=== PATIENT | male | born 1935 | race Caucasian/White ===

== ENCOUNTER → 2017-10-11 | Outpatient (CLI) | payer MEDICARE, OTHER ==
[~2017-10-11] MED LIST: BACTRIM DS TAB1 EACH PO; CEFTIN250 MG PO; ISOSORBIDE MONO30 M1 PO; LEVOFLOXACIN500 MG PO; METOPROLOL TART25 MG PO; OMEPRAZOLE40 MG PO; PLAVIX75 MG PO; PREDNISONE10 MG PO; SIMVASTATIN40 MG PO; TAMSULOSIN HCL0.4 MG PO; XOPENEX0.63 MG/3 IH; ZPACK
--- NOTE | 2017-10-11 15:44 | Diagnostic Imaging Report ---
PROCEDURE:CT CHEST WITHOUT CONTRAST COMPARISON:CT chest 03/20/16 INDICATIONS:ASBESTOSIS, SHORTNESS OF BREATH TECHNIQUE: Axial CT images of the chest were obtained without intravenous contrast. Coronal and sagittal reformations were made available for review. RADIATION DOSE: Total DLP: 482.6 mGy*cm Estimated effective dose: (DLP x 0.014 x size factor) mSv FINDINGS: Lungs: Diffusely hyperinflated. The pattern and severity of interstitial thickening and honeycombing is unchanged. Airways: Varicose bronchiectasis in the affected areas is stable. Masses/nodules: A 3 mm calcified granuloma in the right lower lobe is stable. No soft tissue mass or infiltrate. Pleura: Bilateral apical pleural-parenchymal thickening is stable. No pleural effusions or pleural-based mass. Heart \T\ Mediastinum:The heart is enlarged. There is a stent in the LAD coronary artery. There calcifications of the mitral and aortic valves. The main pulmonary artery measures 3 cm in diameter and is stable. Ascending aorta measures 3.5 cm in diameter and is stable. There is a trace pericardial effusion. The esophagus is normal. Thyroid/base of neck: Visualized portions are normal. Lymph nodes: No enlarged axillary, clavicular, or mediastinal lymph nodes. Tiny calcified right hilar lymph nodes are stable. No enlarged subcarinal lymph nodes. Upper abdomen:There is fatty atrophy of the pancreas. Visualized portions of the liver and spleen containing punctate calcified granulomata. No soft tissue mass in the visualized portions of the upper abdomen. Musculoskeletal:There are no focal osseous lesions. CONCLUSION: 1. No progression of pulmonary fibrosis. No pulmonary mass or infiltrate has developed. 2. No evidence of pleural calcification or pleural mass. 3. Healed granulomatous inflammation. 4. Enlarged main pulmonary artery is suggestive of pulmonary artery hypertension. Stable ascending aortic ectasia. Dictated by: Nasir Loyd M.D. on 10/11/2017 at 15:51 Electronically approved by: Nasir Loyd M.D. on 10/11/2017 at 15:51
== END ==
LOC: CT 14:42
PROVIDERS: ATTEND Internal Medicine Critical Care Medicine
DX: R06.02 Shortness of breath (principal); J61 Pneumoconiosis due to asbestos and other mineral fibers; J44.9 Chronic obstructive pulmonary disease, unspecified; J84.9 Interstitial pulmonary disease, unspecified; Z87.891 Personal history of nicotine dependence
CPT/HCPCS: 71250

== ENCOUNTER → 2018-01-13 | Outpatient (CLI) | payer MEDICARE, OTHER ==
--- NOTE | 2018-01-13 12:26 | Diagnostic Imaging Report ---
PROCEDURE:X-RAY MODIFIED BARIUM SWALLOW COMPARISON:None. INDICATIONS:Dysphagia. DISCUSSION:Fluoroscopic examination was performed in conjunction with speech pathology, during swallowing of a variety of thin and thick liquid consistencies. CONCLUSION: Flash penetration with thin liquids. No aspiration. Please see the report from speech pathology for complete details. Dictated by: Daniel Mccabe M.D. on 01/13/2018 at 12:27 Electronically approved by: Daniel Mccabe M.D. on 01/13/2018 at 12:27
--- NOTE | 2018-01-13 19:52 | Diagnostic Imaging Report ---
Exam: Lumbar spine MRI without IV contrast History: Weakness in legs lumbar discitis. Comparison studies: None Technique: Sagittal and axial T2 , sagittal T1 and IR, axial spin density oblique. Intravenous contrast: None Findings: Number of lumbar vertebral bodies: 5. Alignment: Normal lumbar lordosis. No significant scoliosis. Soft tissues: No T2 hyperintense inflammatory changes. Paraspinal muscles: No T2 hyperintense inflammatory changes. Mild to moderate symmetric bilateral atrophy. Lower thoracic cord: Normal in signal and morphology. The tip of the conus at the inferior L1 level. Cauda equina: No masses. No arachnoiditis. Vertebrae: No compression fractures, infection or neoplasm. Degenerative changes: There is loss of T2/STIR disc signal from T12 through S1. L1-L2: Asymmetric right disc bulge with small extraforaminal annular fissure with minimal right foraminal stenosis. No canal or left frontal stenosis. L2-L3: Disc bulge results in minimal bilateral foraminal stenosis. No canal stenosis. L3-L4: Moderately degenerated disc. Asymmetric asymmetric left disc bulge with small left subarticular disc extrusion, left foraminal disc osteophyte complex, thickened ligamentum flavum and bilateral facet arthrosis with mild canal stenosis, moderate left and mild right foraminal stenosis. Disc extrusion may compress the left L5 nerve root. L4-L5: Moderately degenerated disc. Disc bulge with small central disc protrusion, bilateral foraminal disc osteophyte complexes, thickened ligamentum flavum and bilateral facet arthrosis with mild canal stenosis, moderate bilateral foraminal stenosis and narrowing of the subarticular recesses with disc which abuts the bilateral L5 nerve root and may potentially compress the left L5 nerve root. L5-S1: Symmetric disc bulge and bilateral facet arthrosis without significant canal or foraminal stenosis. IMPRESSION: 1. At L3-L4 there is moderate disc degeneration, mild canal stenosis, moderate left and mild right foraminal stenosis and small left subarticular disc extrusion which may compress the left L4 nerve root. 2. At L4-L5 there is moderate disc degeneration, mild canal stenosis, moderate bilateral foraminal stenosis and small central disc extrusion which abuts the L5 nerve root and may compress the left L5 nerve root. 3. Additional mild degenerative changes as described. Signed by: Dr. Juan Ramon Gamez M.D. on 01/13/2018 7:48 PM
== END | disposition home or self-care (01) ==
LOC: MRI 10:00
PROVIDERS: ATTEND Internal Medicine Critical Care Medicine
DX: J61 Pneumoconiosis due to asbestos and other mineral fibers (principal); J44.9 Chronic obstructive pulmonary disease, unspecified; J84.9 Interstitial pulmonary disease, unspecified; M46.46 Discitis, unspecified, lumbar region; Z87.891 Personal history of nicotine dependence; R06.02 Shortness of breath; G83.10 Monoplegia of lower limb affecting unspecified side; M51.36 Other intervertebral disc degeneration, lumbar region
CPT/HCPCS: 72148; 74230

== ENCOUNTER → 2018-07-07 | Outpatient (CLI) | payer MEDICARE, OTHER ==
--- NOTE | 2018-07-07 07:47 | Diagnostic Imaging Report ---
PROCEDURE: CT CHEST WITHOUT CONTRAST CT scan of the chest WITHOUT intravenous contrast, using standard protocol. TECHNIQUE: The chest was scanned utilizing a multidetector helical scanner from the apex to the level of the adrenal glands. No IV contrast was administered because of referring physician request. Coronal and sagittal multiplanar reformations were obtained. COMPARISON: CT chest without contrast 10/11/2017. INDICATIONS: SHORTNESS OF BREATH FINDINGS: Lines/tubes: None. Lungs and Airways: Stable appearance of the lungs. No appreciable interval progression of diffuse interstitial prominence including interlobular septal thickening, ground glass opacities, and bronchiectasis. No new consolidation or mass. Calcified right lower lobe granuloma unchanged. Pleura: The pleural spaces are clear. Heart and mediastinum: The visualized portions of the thyroid gland appear normal. Stable borderline ectasia of the descending thoracic aorta (3.8 cm) as well as borderline enlargement of the pulmonary outflow tract (3.1 cm). No pericardial effusion. Atherosclerotic calcification of the [place] coronary arteries with probable metallic stents within the left anterior descending and circumflex arteries. Calcified right hilar lymph node. No mediastinal lymphadenopathy. Soft tissues: Interval implantation of a metallic device in the subcutaneous tissues of the left anterior chest wall compatible with a loop recorder. Soft tissues are otherwise unremarkable. Abdomen: Visualized portions of the liver, gallbladder, pancreas, and adrenal glands are unremarkable. Calcified splenic granulomata. Bones: No osseous destructive lesions. Degenerative changes of the cervical spine partially visualized. IMPRESSION: No significant interval radiographic progression of pulmonary fibrosis relative to 10/11/2017. No new consolidation or mass lesion. Atherosclerotic vascular disease with stable borderline aortic ectasia. Borderline enlargement of the pulmonary outflow tract again suggests underlying pulmonary hypertension. Dictated by: Juan Ramon Watson M.D. on 07/07/2018 at 7:55 Electronically approved by: Juan Ramon Watson M.D. on 07/07/2018 at 7:55
== END ==
LOC: CT 06:54
PROVIDERS: ATTEND Internal Medicine Critical Care Medicine
DX: J44.9 Chronic obstructive pulmonary disease, unspecified (principal); R06.02 Shortness of breath; J61 Pneumoconiosis due to asbestos and other mineral fibers; J84.9 Interstitial pulmonary disease, unspecified; M46.46 Discitis, unspecified, lumbar region; G83.10 Monoplegia of lower limb affecting unspecified side; Z87.891 Personal history of nicotine dependence
CPT/HCPCS: 71250

== ENCOUNTER → 2021-03-30 | Outpatient (CLI) | payer MEDICARE, OTHER | LOC: MRI 14:51 | PROVIDERS: ATTEND Psychiatry & Neurology Neurology | DX: G95.9 Disease of spinal cord, unspecified (principal) | CPT/HCPCS: 72141 ==

== ENCOUNTER 2022-07-22 14:18 | Emergency (ER) | payer MEDICARE, OTHER ==
[~2022-07-22] VITALS: Ht 170.2 cm; Wt 87.1 kg
[2022-07-22] MEDS ORDERED: SODIUM CHLORIDE 0.9% 500ML 500 ML IV STA (14:22)
[2022-07-22 14:51] LABS: BASOPHILS % 0.6 % (0.0-1.0); EOSINOPHILS % 0.3 % (0.0-6.0); HEMATOCRIT 25.6 % (38.2-49.6); HEMOGLOBIN 7.8 g/dL (14.0-18.0); LYMPHOCYTES # (AUTO) 0.6 (1.0-3.2); LYMPHOCYTES % 18.6 % (18.0-39.1); MEAN CORPUSCULAR HEMOGLOBIN 30.2 pg (28-32); MEAN CORPUSCULAR HGB CONC 30.5 g/dL (31-35); MEAN CORPUSCULAR VOLUME 99.2 fL (81-99); MONOCYTES # (AUTO) 0.4 (0.2-0.8); MONOCYTES % 10.9 % (4.4-11.3); NEUTROPHILS # (AUTO) 2.3 (2.1-6.9); PLATELET COUNT 69 x10e3/uL (140-360); RED BLOOD COUNT 2.58 x10e6/uL (4.3-5.7); RED CELL DISTRIBUTION WIDTH 16.1 % (11.7-14.4)
[2022-07-22 15:06] LABS: CLARITY,URINE CLEAR (CLEAR); COLOR,URINE YELLOW (YELLOW)
[2022-07-22 15:07] LABS: BACTERIA,URINE FEW /HPF; KETONES,URINE NEGATIVE (NEGATIVE); LEUKOCYTE ESTERASE ,URINE NEGATIVE (NEGATIVE); NITRITE,URINE NEGATIVE (NEGATIVE); PROTEIN,URINE DIPSTICK NEGATIVE (NEGATIVE); RBC,URINE 0-5 /HPF (0-5); URINE UROBILINOGEN 0.2 mg/dL (0.2 - 1); WBC,URINE (MAN) 0-5 /HPF (0-5)
[2022-07-22 15:09] LABS: MUCUS,URINE MODERATE (RARE)
[2022-07-22 15:11] LABS: ALBUMIN 2.4 g/dL (3.5-5.0); ALBUMIN/GLOBULIN RATIO 0.7 (0.8-2.0); ANION GAP 13.5 mmol/L (8-16); CALCIUM 7.4 mg/dL (8.4-10.2); CREATININE, SERUM 1.47 mg/dL (0.72-1.25); POTASSIUM 3.5 mmol/L (3.5-5.1)
[2022-07-22 15:42] VITALS: BP 114/62
== END 2022-07-22 15:43 | disposition home or self-care (01) ==
LOC: ER 14:22
DX: R53.83 Other fatigue (principal); R53.1 Weakness; T50.B95A Adverse effect of other viral vaccines, initial encounter; D64.9 Anemia, unspecified; E78.5 Hyperlipidemia, unspecified; I25.10 Atherosclerotic heart disease of native coronary artery without angina pectoris; R94.31 Abnormal electrocardiogram [ECG] [EKG]; Z95.5 Presence of coronary angioplasty implant and graft
CPT/HCPCS: 36415; 71045; 80053; 81001; 84484; 85025; 93005; 99284; J7040